=== PATIENT | male | born 1985 | race Two or more races ===

== ENCOUNTER → 2019-06-21 | Outpatient (REF) | payer OTHER | LOC: M SFHCLERA 14:43 | PROVIDERS: ATTEND Nurse Practitioner Family | DX: J02.9 Acute pharyngitis, unspecified (principal) ==

== ENCOUNTER 2019-08-04 09:30 | Emergency (ER) | payer OTHER ==
[~2019-08-04] VITALS: Ht 170.2 cm; Wt 71.0 kg
[2019-08-04] MEDS ORDERED: BENZ200C70 (09:37)
[2019-08-04 11:03] LABS: BASO % 0.5 % (0.0-1.0); EOS # 0.1 10^3/uL (0.0-0.5); EOS % 1.4 % (0.0-3.0); HEMATOCRIT 44.7 % (42.0-52.0); HEMOGLOBIN 14.3 g/dl (13.5-17.5); LYMPH # 0.9 10^3/uL (1.5-5.0); LYMPH % 13.1 % (24.0-44.0); MEAN CORPUSCULAR HEMOGLOBIN 28.8 pg (27.0-33.0); MEAN CORPUSCULAR VOLUME 89.9 fl (80.0-96.0); MONO # 0.8 10^3/uL (0.0-0.8); MONO % 11.9 % (0.0-5.0); NEUTROPHILS # 4.7 10^3/uL (1.5-8.5); NEUTROPHILS % 71.6 % (36.0-66.0); PLATELET COUNT, AUTOMATED 190 10^3/uL (150-450); RED BLOOD COUNT 4.97 10^6/uL (4.30-6.10); WHITE BLOOD COUNT 6.5 10^3/uL (4.0-10.0)
--- NOTE | 2019-08-04 11:11 | REP ---
CT BRAIN WITHOUT CONTRAST: 08/04/2019. Clinical history: Intractable headache. Left lower lobe pneumonia noted today. Findings: Noncontrast images of the brain were performed along with coronal reconstructions and soft tissue window settings. The lateral ventricles are symmetric and without dilatation or displacement. Third and fourth ventricles unremarkable. Pineal calcification noted but felt to be normal. Basal ganglia symmetric and normal. Horn white junction differentiation well maintained throughout the hemispheres. The cortical stripe is preserved. I see no intra or extra-axial hemorrhage, mass, mass effect or edema. No cortical atrophy. Basal cisterns are intact. Posterior fossa shows brainstem and cerebellum intact. Mastoids and visualized sinuses are clear. Skull base and calvarium show no fracture or focal lesion. Impression: 1. Normal noncontrast CT brain. Electronically Signed by Baljit Chun MD 08/04/2019 01:21 P
--- NOTE | 2019-08-04 11:13 | REP ---
CHEST PA AND LATERAL: 08/04/2019. CLINICAL HISTORY: Cough, fever, hemoptysis. FINDINGS: Two-view show extensive patchy consolidation involving most of the left lower lobe representing lobar pneumonia. No definite effusion. The left upper lobe and the right lung are clear. Heart, mediastinal and hilar contours, aorta and airway intact. Bones unremarkable. IMPRESSION: 1. Lobar pneumonia in the left lower lobe without effusion. No other finding. Electronically Signed by Baljit Chun MD 08/04/2019 01:21 P
[2019-08-04 11:26] LABS: BLOOD UREA NITROGEN 8 MG/DL (7-18); CALCIUM LEVEL 8.9 MG/DL (8.5-10.1); CARBON DIOXIDE LEVEL 29 MEQ/L (21-32); CHLORIDE LEVEL 103 MEQ/L (98-107); CREATININE FOR GFR 1.01 MG/DL (0.70-1.30); GLOMERULAR FILTRATION RATE > 60.0 (>60); GLUCOSE, FASTING 100 MG/DL (70-100); POTASSIUM SERUM 4.2 MEQ/L (3.5-5.1); SODIUM LEVEL 138 MEQ/L (136-145)
[2019-08-04] MEDS ORDERED: ZITHTAB PO (11:29)
[2019-08-04] MEDS ORDERED: CEFU50TA PO (11:29)
[2019-08-04 11:41] VITALS: BP 135/87
== END 2019-08-04 11:42 | disposition home or self-care (01) ==
LOC: M ED 09:30
DX: J18.1 Lobar pneumonia, unspecified organism (principal)